=== PATIENT | male | born 1995 | race African-American/Black ===

== ENCOUNTER 2017-07-14 22:16 | Emergency (ER) | payer MEDICAID ==
[~2017-07-14] VITALS: Ht 172.7 cm; Wt 54.4 kg
--- NOTE | 2017-07-14 22:53 | NUR ---
Dr Rodriguez at bedside for MSE.
--- NOTE | 2017-07-14 22:59 | NUR ---
Patient discharged to home in stable conditon. Written and verbal after care instructions given. Patient verbalizes understanding of instructions. Patient ambulated out of ER with steady gait, no acute signs of distress, VSS, all belongings taken.
[2017-07-14 23:01] VITALS: BP 133/76
== END 2017-07-14 23:02 | disposition home or self-care (01) ==
LOC: ER 22:19
DX: M54.9 Dorsalgia, unspecified (principal)
CPT/HCPCS: 99283; A4663

== ENCOUNTER 2017-08-03 21:16 | Emergency (ER) | payer MEDICAID, OTHER ==
[~2017-08-03] VITALS: Ht 170.2 cm; Wt 54.4 kg
[2017-08-03] MEDS ORDERED: CEFTRIAXONE 500 MG VIAL IM ONE (22:00)
[2017-08-03] MEDS ORDERED: AZITHROMYCIN 250 MG TABLET PO ONE (22:00)
--- NOTE | 2017-08-03 22:01 | NUR ---
Patient in bed, awaiting lab results.
[2017-08-03 22:06] LABS: *BILIRUBIN,URIN NEGATIVE (NEGATIVE); *BLOOD, URINE NEGATIVE (NEGATIVE); *CLARITY,URINE CLEAR (CLEAR); *COLOR,URINE YELLOW (YELLOW); *KETONES,URINE NEGATIVE (NEGATIVE); *PROTEIN,URINE NEGATIVE (NEGATIVE); *UROBILINOGEN,URINE 0.2 E.U./dl (NORMAL); LEUKOCYTE ESTERASE ,URINE TRACE (NEGATIVE); NITRITE, URINE NEGATIVE (NEGATIVE); UGLUCOSE NEGATIVE (NEGATIVE)
[2017-08-03 22:09] LABS: BACTERIA,URINE FEW /HPF (NONE SEEN); RBC,URINE 0-3 /HPF (0-3); SQUAMOUS EPITHELIAL CELL,UR NONE SEEN /HPF (NONE SEEN)
[2017-08-03] MEDS ORDERED: AZITHROMYCIN 500 MG VIAL IV ONE (22:10)
[2017-08-03] MEDS ORDERED: AZITHROMYCIN 250 MG TABLET ONE (22:10)
--- NOTE | 2017-08-03 22:23 | NUR ---
Patient discharged to home in stable conditon. Written and verbal after care instructions given. Patient verbalizes understanding of instructions. Ambulated from ER with stable gait. All belongings with patient.
[2017-08-03 22:25] VITALS: BP 124/78
[2017-08-06 00:07] LABS: *GC NAA Negative (Negative); *TRIC.VAG. NAA Negative (Negative)
== END 2017-08-03 22:27 | disposition home or self-care (01) ==
LOC: ER 21:18
DX: Z76.0 Encounter for issue of repeat prescription (principal)
CPT/HCPCS: 81001; 87491; 96372; 99284; A4663; Q0144; J0456

== ENCOUNTER 2018-01-05 21:36 | Emergency (ER) | payer MEDICAID, OTHER ==
[~2018-01-05] VITALS: Ht 170.2 cm; Wt 56.7 kg
--- NOTE | 2018-01-05 23:02 | NUR ---
Patient discharged to home in stable conditon. Written and verbal after care instructions given. Patient verbalizes understanding of instructions.
== END 2018-01-05 23:04 | disposition home or self-care (01) ==
LOC: ER 21:39
DX: F41.9 Anxiety disorder, unspecified (principal); G47.00 Insomnia, unspecified
CPT/HCPCS: A4663

== ENCOUNTER 2018-06-05 15:05 | Emergency (ER) | payer MEDICAID ==
[~2018-06-05] VITALS: Ht 170.2 cm; Wt 54.9 kg
[2018-06-05 16:12] VITALS: BP 126/78
--- NOTE | 2018-06-05 16:12 | NUR ---
PT WAS EVALUATED BY DR CARR. PT WAS D/C'd TO HOME. D/C INSTRUCTIONS GIVEN TO THE PT.
== END 2018-06-05 16:14 | disposition home or self-care (01) ==
LOC: ER 15:07
DX: F41.9 Anxiety disorder, unspecified (principal); Z76.0 Encounter for issue of repeat prescription
CPT/HCPCS: A4663

== ENCOUNTER 2018-07-02 13:36 | Emergency (ER) | payer MEDICAID ==
[~2018-07-02] VITALS: Ht 170.2 cm; Wt 56.7 kg
--- NOTE | 2018-07-02 13:39 | NUR ---
Ilda allen in ED - 07/02/18 at 1341 by [id number] Patient discharged to home in stable conditon. Written and verbal after care instructions given. Patient verbalizes understanding of instructions. Taken home by family.
--- NOTE | 2018-07-02 14:13 | NUR ---
ARTURO RESENDEZ AT BEDSIDE FOR MSE.
--- NOTE | 2018-07-02 14:20 | NUR ---
Patient discharged to home in stable conditon. Written and verbal after care instructions given. Patient verbalizes understanding of instructions. ALL BELONGINGS W/ PT. PT SELF-AMBULATED W/O DIFFICULTY.
[2018-07-02 14:21] VITALS: BP 115/88
== END 2018-07-02 14:22 | disposition home or self-care (01) ==
LOC: ER 13:36
DX: F41.9 Anxiety disorder, unspecified (principal); Z76.0 Encounter for issue of repeat prescription
CPT/HCPCS: A4663

== ENCOUNTER 2018-09-27 16:47 | Emergency (ER) | payer MEDICAID ==
[~2018-09-27] VITALS: Ht 170.2 cm; Wt 58.5 kg
[2018-09-27] MEDS ORDERED: ALPRAZOLAM 0.25 MG TABLET PO ONE (18:00)
[2018-09-27 18:09] LABS: BASOPHILS % (AUTO) 0.7 % (0.0-2.0); EOSINOPHILS # (AUTO) 0.2 K/uL (0.0-0.7); EOSINOPHILS % (AUTO) 4.1 % (0.0-7.0); HEMATOCRIT 43.5 % (36.7-47.1); LYMPHOCYTES # (AUTO) 1.6 K/uL (20.0-40.0); LYMPHOCYTES % (AUTO) 36.1 % (20.5-51.5); MEAN CORPUSCULAR HEMOGLOBIN 33.4 uug (23.8-33.4); MEAN CORPUSCULAR HGB CONC 35 g/dL (32.5-36.3); MEAN CORPUSCULAR VOLUME 96.6 fL (73.0-96.2); MONOCYTES # (AUTO) 0.5 K/uL (2.0-10.0); MONOCYTES % (AUTO) 11.5 % (0.0-11.0); NEUTROPHILS # (AUTO) 2.1 K/uL (1.8-8.9); NEUTROPHILS % (AUTO) 47.6 % (38.5-71.5); PLATELET COUNT (AUTO) 252 K/uL (152-348); WHITE BLOOD COUNT (AUTO) 4.3 K/uL (3.6-10.2)
[2018-09-27] MEDS ORDERED: ALPRAZOLAM 0.5 MG TABLET ONE (18:15)
[2018-09-27 18:16] LABS: CREATININE 1.1 mg/dL (0.6-1.3); POTASSIUM 4.8 mmol/L (3.5-5.1)
[2018-09-27 18:27] LABS: BILIRUBIN,DIRECT 0.2 mg/dL (0.0-0.2); BILIRUBIN,TOTAL 0.6 mg/dL (0.2-1.0); TOTAL PROTEIN, SERUM 8.6 g/dL (6.4-8.2)
--- NOTE | 2018-09-27 18:43 | NUR ---
Patient discharged to home in stable conditon. Written and verbal after care instructions given. Patient verbalizes understanding of instructions.
== END 2018-09-27 18:46 | disposition home or self-care (01) ==
LOC: ER 16:49
DX: F41.9 Anxiety disorder, unspecified (principal)
CPT/HCPCS: 36415; 85025; A4663

== ENCOUNTER 2018-10-08 11:34 | Emergency (ER) | payer MEDICAID ==
[~2018-10-08] VITALS: Ht 170.2 cm; Wt 58.5 kg
[2018-10-08 12:40] VITALS: BP 112/60
== END 2018-10-08 12:41 | disposition home or self-care (01) ==
LOC: ER 11:34
DX: F41.9 Anxiety disorder, unspecified (principal); G47.00 Insomnia, unspecified; Z76.0 Encounter for issue of repeat prescription
CPT/HCPCS: A4663

== ENCOUNTER 2019-04-08 15:26 | Emergency (ER) | payer MEDICAID ==
[~2019-04-08] VITALS: Ht 170.2 cm; Wt 58.1 kg
--- NOTE | 2019-04-08 17:00 | NUR ---
Patient discharged to home in stable conditon walking w/ steady gait. Written and verbal after care instructions given. Patient verbalizes understanding of instructions.
[2019-04-08 17:03] VITALS: BP 110/80
== END 2019-04-08 16:58 | disposition home or self-care (01) ==
LOC: ER 15:26
DX: F41.1 Generalized anxiety disorder (principal); F41.0 Panic disorder [episodic paroxysmal anxiety]; Z76.0 Encounter for issue of repeat prescription
CPT/HCPCS: A4663